=== PATIENT | female | born 1960 | race Caucasian/White ===

== ENCOUNTER 2016-09-23 13:35 | Emergency (ER) | payer MEDICAID ==
[2016-09-23 13:45] VITALS: RESP 18; TEMP 97.9; O2SAT 95
--- NOTE | 2016-09-23 14:16 | CPEKG ---
Heart Rate: 71 RR Interval: 845 P-R Interval: 168 QRSD Interval: 90 QT Interval: 404 QTC Interval: 439 P Garrison: 19 QRS Garrison: 68 T Wave Garrison: 15 EKG Severity - NORMAL ECG - EKG Impression: SINUS RHYTHM Electronically Signed By: Khadra Reyna 23-Sep-2016 21:06:23
[2016-09-23 14:26] VITALS: BP 148/83; PULSE 79
[2016-09-23 14:30] LABS: % IMMATURE GRANULYOCYTES 0.1 % (0.0-1.1); ABSOLUTE IMMATURE GRANULOCYTES 0.01 10^3/uL (0.00-0.10); ADD DIFF? NO; ADD MORPH? NO; ADD SCAN? NO; ATYPICAL LYMPHOCYTE FLAG 10 (0-99); FRAGMENT RBC FLAG 0 (0-99); LEFT SHIFT FLG 0 (0-99); LIPEMIA HEMOLYSIS FLAG 90 (0-99); MEAN CELL HEMOGLOBIN 29.5 pg (27.9-34.1); MEAN CELL HEMOGLOBIN CONCENTR. 34.1 g/dL (32.4-36.7); MEAN CELL VOLUME 86.5 fL (81.5-99.8); MEAN PLATELET VOLUME 9.6 fL (8.7-11.7); PLATELET CLUMPS FLAG 0 (0-99); PLATELET COUNT 269 10^3/uL (150-400); RED BLOOD CELL COUNT 4.74 10^6/uL (4.18-5.33); RED CELL DISTRIBUTION WIDTH 12.7 % (11.5-15.2)
--- NOTE | 2016-09-23 14:37 | EDPHY ---
H & P Time Seen by Provider: 09/23/16 14:26 HPI/ROS: CHIEF COMPLAINT: Fatigue, passed out HISTORY OF PRESENT ILLNESS: 56 year old female presents with fatigue and associated symptoms onset six days ago, 09/17/16. Friday morning, she had an episode of abdominal cramping, near syncope, diaphoresis, and blackness in vision which lasted about 30 minutes. She vomited once during this time. She has felt fatigued all week, particularly after a walk on Friday, which is unusual for her. Friday, she developed mild chest pain and felt her heart racing, with associated neck and jaw pain. She took aspen bark tincture and other natural pain remedies, which slightly relieved the discomfort. Since then, she has had a constant dull chest pain. No change with exertion or breathing. No further vomiting or diarrhea since Friday. Today, she called to make an appointment with a primary care provider, who recommended she proceed to the emergency department. Her main complaint today is ongoing and excessive fatigue. No fever, cough, pain or swelling in her legs, or other associated symptoms. REVIEW OF SYSTEMS: 10 point ROS negative for acute signs/sx except as noted in the HPI Past Medical/Surgical History: Denies Social History: Family members at bedside. Smoking Status: Never smoked Physical Exam: General Appearance: Alert, well-appearing Eyes: Pupils equal and round, no conjunctival pallor or injection ENT, Mouth: Mucous membranes moist Neck: Normal inspection Respiratory: Lungs are clear to auscultation Cardiovascular: Regular rate and rhythm Gastrointestinal: Abdomen is soft and non-tender Neurological: A&O, nonfocal, normal gait Skin: Warm and dry, no rash Extremities: Nontender, no pedal edema Psychiatric: Mood and affect normal Constitutional: Initial Vital Signs Temperature (C) 36.6 C 09/23/16 13:42 Heart Rate 80 09/23/16 13:42 Respiratory Rate 18 09/23/16 13:42 Blood Pressure 141/97 H 09/23/16 13:42 O2 Sat (%) 95 09/23/16 13:42 O2 Delivery Mode Room Air Allergies/Adverse Reactions: No Known Allergies Allergy (Unverified 07/17/14 15:18) Home Medications: Medication Instructions Recorded Herbals/Supplements -Info Only 1 ea PO DAILY 07/17/14 Magnesium Oxide [Magnesium Oxide 400 mg PO DAILY 07/17/14 400 mg (*)] Heath-3 Fatty Acids [Fish Oil 1000 2,000 mg PO DAILY 07/17/14 mg (*)] Vit B Comp/C/FA/Iron/Vit E 1 each PO DAILY 07/17/14 [Vitamin B Complex Tablet] Medical Decision Making - Diagnostics EKG Interpretation: EKG interpreted by me reveals normal sinus rhythm, rate 71, no ST/T changes. Interpretation: normal EKG Imaging Results: Chest x-ray independently reviewed by me reveals no acute disease. Imaging: I viewed and interpreted images myself ED Course/Re-evaluation: 56 year old female presenting with fatigue, chest pain, headache. Stat EKG reveals no evidence of ischemia or dysrhythmia. I do not suspect ACS in this pt with greater than 24hrs of non-exertional chest pain. Plan for chest x-ray, labs including CBC, BMP, Troponin. Chest x-ray normal. Labs unremarkable. Plan to discharge home in good condition. d/w pt, she became very upset. I tried to explain the evaluation to her, and follow-up, but she asked me to leave the room. She is unable/unwilling to have a conversation about what her concern is and how we can help. Unclear why she is so upset. She seemed upset on arrival as well and had a negative interaction with the ED RN, in which she asked the RN to leave the room and not return. Differential Diagnosis: Differential diagnosis includes though it is not limited to pneumonia, pneumothorax, pulmonary embolism, aortic dissection, pericarditis, acute coronary syndrome. - Data Points Laboratory Results: Laboratory Results 09/23/16 14:20 09/23/16 14:20 Departure - Departure Disposition: Home, Routine, Self-Care Clinical Impression: Chest pain Qualifiers: Chest pain type: other chest pain Qualified Code(s): R07.89 - Other chest pain ; R07.8 - Other chest pain Fatigue Qualifiers: Fatigue type: other Qualified Code(s): R53.83 - Other fatigue Condition: Good Instructions: Chest Pain (ED), Fatigue (ED) Additional Instructions: Ibuprofen 600 mg 3 times daily while the pain persists. Referrals: Hermann Cordova MD [Medical Doctor] - As per Instructions Report Scribed for: Khadra Reyna Report Scribed by: Frances Hanley Date of Report: 09/23/16 Time of Report: 14:32 Physician Review and Approval Statement: 09/23/16 14:32 Portions of this note were transcribed by a medical reviewer. I personally performed a history, physical exam, medical decision making, and confirmed accuracy of information the transcribed note.
[2016-09-23 14:40] LABS: ANION GAP 16 mEq/L (8-16); CALCIUM 9.5 mg/dL (8.5-10.4); CARBON DIOXIDE 21 mEq/l (22-31); CHLORIDE 106 mEq/L (97-110); CREATININE 1.1 mg/dL (0.6-1.0); GLOMERULAR FILTRATION RATE 51; GLUCOSE 84 mg/dL (70-100); POTASSIUM 4.2 mEq/L (3.5-5.2); SODIUM 143 mEq/L (134-144)
[2016-09-23 14:52] LABS: TROPONIN I < 0.012 ng/mL (0-0.034)
== END 2016-09-23 15:26 | disposition home or self-care (01) ==
DX: R07.89 Other chest pain (principal); R53.83 Other fatigue